=== PATIENT | male | born 1965 | race Caucasian/White ===

== ENCOUNTER 2016-07-28 09:23 | Emergency (ER) | payer SELFPAY ==
[2016-07-28 09:49] VITALS: BP 118/75; O2SAT 91
--- NOTE | 2016-07-28 09:52 | ED.PDOC ---
History of Present Illness - General Chief Complaint: Skin/Abrasion/Tear Stated Complaint: redness to righ arm post iv Time Seen by Provider: 07/28/16 09:50 Source: patient, RN notes reviewed, Vital Signs reviewed Exam Limitations: no limitations - History of Present Illness Initial Comments: Stated was admitted to [facility] last week for elevated wbc-possible leukemia and was given ivf and iron iv then yesterday had redness and swelling getting worse right arm. Timing/Duration: other - 3 days ago Severity: moderate Location: extremities - right antecubital area Improving Factors: nothing Worsening Factors: nothing - some pain on pressure Allergies/Adverse Reactions: Allergies NO KNOWN ALLERGY Allergy (Verified 07/22/16 12:07) Home Medications: Ambulatory Orders Arthritis Med 1 each PO DAILY 07/22/16 Cephalexin 1,000 mg PO BID #30 cap 07/28/16 Review of Systems - Review of Systems Constitutional: States: no symptoms reported EENTM: States: no symptoms reported Respiratory: States: no symptoms reported Cardiology: States: no symptoms reported Gastrointestinal/Abdominal: States: no symptoms reported Genitourinary: States: no symptoms reported Musculoskeletal: States: no symptoms reported Skin: States: see HPI Neurological: States: no symptoms reported Endocrine: States: no symptoms reported Hematologic/Lymphatic: States: other - being work up for elevated wbc Past Medical History (General) - Patient Medical History Hx Stroke: No Hx Congestive Heart Failure: No Hx Diabetes: No Hx Cancer: No Hx Hepatitis C: No Surgical History: no surgical history - Vaccination History Hx Tetanus, Diphtheria Vaccination: No Hx Influenza Vaccination: No Hx Pneumococcal Vaccination: No - Social History Hx Tobacco Use: No Hx Chewing Tobacco Use: No Hx Alcohol Use: Yes - social Hx Substance Use: No Feels Threatened In Home Enviroment: No - Activities of Daily Living Snf/Assisted Living (if applicable):: [facility] Family Medical History - Family History Father Family History: No Known Living Status: Hx Family Cancer: Yes - prostate,colon Physical Exam - Physical Exam General Appearance: Alert, No apparent distress Eyes, Ears, Nose, Throat Exam: PERRL/EOMI, normal ENT inspection, TMs normal Neck: non-tender, full range of motion, normal inspection Cardiovascular/Chest: normal peripheral pulses, regular rate, rhythm, no edema Respiratory: chest non-tender, lungs clear, normal breath sounds, no respiratory distress Gastrointestinal/Abdominal: normal bowel sounds, non tender, soft Back Exam: normal inspection, no CVA tenderness Extremity: non-tender, normal inspection Neurologic: alert, normal mood/affect, oriented x 3 Skin Exam: warm/dry, other - redness/tenderness right antecubital area Skin Character: tenderness, warm Lymphatic: no adenopathy Departure - Departure Clinical Impression: Phlebitis after infusion Qualifiers: Encounter type: initial encounter Qualifier Code: (T80.1XXA) Vascular complications following infusion, transfusion and therapeutic injection, initial encounter Time of Disposition: 10:08 Disposition: Discharge to Home or Self Care Departure Forms: ED Discharge - Pt. Copy, Patient Portal Self Enrollment Instructions: Phlebitis/DVT (Alternative Therapy) Prescriptions: Cephalexin 1,000 mg PO BID #30 cap Home Medications: Ambulatory Orders Arthritis Med 1 each PO DAILY 07/22/16 Cephalexin 1,000 mg PO BID #30 cap 07/28/16 Additional Instructions: Continue with warm moist pack 10 minutes 3x a day during waking hours only until better;RETURN TO EMERGENCY ROOM NEEDED
[2016-07-28] MEDS ORDERED: TETANUS,DIPHTHERIA,PERTUSSIS 1 EA SYG IM ONE (10:12)
[2016-07-28 10:32] VITALS: TEMP 98.4
== END 2016-07-28 10:44 | disposition home or self-care (01) ==
LOC: ER 09:23
DX: T80.1XXA Vascular complications following infusion, transfusion and therapeutic injection, initial encounter (principal); D72.829 Elevated white blood cell count, unspecified; Z79.899 Other long term (current) drug therapy; Z23 Encounter for immunization

== ENCOUNTER 2016-10-14 17:59 | Inpatient (IN) | payer SELFPAY ==
[2016-10-14] MEDS ORDERED: SODIUM CHLORIDE 0.9% (FLUSH) 10 ML SYG IV PRN ×2 (18:13→22:55)
--- NOTE | 2016-10-14 18:22 | ED.PDOC ---
History of Present Illness - General Chief Complaint: Respiratory Problem Stated Complaint: sob Time Seen by Provider: 10/14/16 18:13 Source: patient Exam Limitations: no limitations Additional Information: STARTED 4 H AGO. SOB. NO CP. NEVER HAD SIMILAR. PMH -CML, IS ON SPRYCEL (MONOCLONAL ANTIBODY) SINCE AUG. DENIES CARDIAC OR LUNG HX. NONSMOKER. ALEV BY SITTING UPRIGHT. ARRGAV BY WALKING. - History of Present Illness Severity: severe Activities at Onset: activity Possible Cause: no prior episodes Improving Factors: immobilization Worsening Factors: movement Allergies/Adverse Reactions: Allergies Iron Adverse Reaction (Verified 10/14/16 18:29) Home Medications: Ambulatory Orders Allopurinol [Zyloprim] 300 mg PO DAILY 10/14/16 Dasatinib [Sprycel] 20 mg DAILY 10/14/16 Review of Systems - Review of Systems Constitutional: Denies: diaphoresis, weakness EENTM: States: no symptoms reported Respiratory: States: short of breath. Denies: cough, stridor, wheezing Cardiology: Denies: chest pain, palpitations Gastrointestinal/Abdominal: States: no symptoms reported Genitourinary: States: no symptoms reported Musculoskeletal: States: no symptoms reported Skin: States: no symptoms reported Neurological: States: no symptoms reported. Denies: headache, numbness, paresthesia, seizure, weakness Endocrine: States: no symptoms reported Hematologic/Lymphatic: States: no symptoms reported All other Systems: Reviewed and Negative Past Medical History (General) - Patient Medical History Hx Stroke: No Hx Congestive Heart Failure: No Hx Diabetes: No Hx Cancer: No Hx Hepatitis C: No - Vaccination History Hx Tetanus, Diphtheria Vaccination: No Hx Influenza Vaccination: No Hx Pneumococcal Vaccination: No - Social History Hx Tobacco Use: No Hx Chewing Tobacco Use: No Hx Alcohol Use: Yes - social Hx Substance Use: No Family Medical History - Family History Father Family History: No Known Living Status: Hx Family Cancer: Yes - prostate,colon Physical Exam - Physical Exam General Appearance: Alert, Obvious distress, Obese Eyes, Ears, Nose, Throat Exam: PERRL/EOMI, normal ENT inspection, TMs normal, pharynx normal Neck: non-tender, full range of motion, supple - NO JVD, NO BRUIT. Respiratory: chest non-tender, no respiratory distress, no accessory muscle use - VERY FAINT BL EXP WHEEZE. 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 I SPOKE WITH ONCOLOGY, DR. SHEIKH COVERING FOR DR. ROWLAND (PT'S ONCOLOGIST) . SHE SAID SINCE ABSOLUTE NEUTROPHIL COUNT IS ABOVE 1,500 HE IS SAFE FOR ADMISSION AT [facility] ON STANDARD PNE ANTIBIOTIC THERAPY. I SPOKE WITH DR. LOW, WHO ACCEPTED ADMISSION. AZITHROMYCIN AND LEVAQUIN ARE CONTRAINDICATED WITH SPRYCEL (HIS CML MEDICATION) SO I STARTED ZOSYN. BLOOD CX OBTAINED PRIOR TO ABX. THANK YOU, DR. LOW AND [facility] FOR ACCEPTING ADMISSION AND FURTHER CARE OF THIS PATIENT. Departure - Departure Clinical Impression: Sepsis, Pneumonia of both lower lobes, Hypoxia, Fever, Cough, Dyspnea, Leukopenia, CML (chronic myeloid leukemia), Anemia, Hyposmolality and/or hyponatremia, Hematuria, microscopic Disposition: Admit Patient Condition: Serious Home Medications: Ambulatory Orders Allopurinol [Zyloprim] 300 mg PO DAILY 10/14/16 Dasatinib [Sprycel] 20 mg DAILY 10/14/16 Decision To Admit - Decistion To Admit Decision to Admit Reason: Admit from ER Decision to Admit Date: 10/14/16 Decision to Admit Time: 21:40
--- NOTE | 2016-10-14 18:59 | RAD ---
EXAM: Chest,1 View CLINICAL INDICATION: 51-year-old male with shortness of breath. TECHNIQUE: Single view, AP portable chest was obtained. COMPARISON: 07/22/2016. FINDINGS: Stable prominent cardiac and mediastinal silhouette. Heart size is top normal. Interstitial and airspace opacification raising the concern for pulmonary vascular congestion and edema versus infectious process. No gross pneumothoraces or large pleural effusions. Elevation of the RIGHT hemidiaphragm. The visualized bones are within normal limits. IMPRESSION: Interstitial and airspace opacification raising the concern for pulmonary vascular congestion and edema versus infectious process. Electronically signed by: Lucinda Marie MD 10/14/2016 6:58 PM CDT
[2016-10-14] MEDS ORDERED: PIPERACILLIN/TAZOBACTAM 3.375 GM in SODIUM CHLORIDE 0.9% 100ML 100 ML IVPB ONE (21:29)
[2016-10-14] MEDS ORDERED: PIPERACILLIN/TAZOBACTAM 3.375 GM VIAL IVPB ONE ×2 (21:32→23:18)
[2016-10-14] MEDS ORDERED: SODIUM CHLORIDE 0.9% 100ML 100 ML IVPB ONE ×3 (21:33→23:19)
--- NOTE | 2016-10-14 21:53 | HP ---
HISTORY OF PRESENT ILLNESS: This 51-year-old, white male is admitted to the hospital from the Emergency Room because of significant shortness of breath with associated fever. Earlier this morning, he noted increasing dyspnea with rapid breathing and coughing and tightness in his chest upon breathing. No sputum was being produced. The patient has a history of becoming quite short of breath back in June of this past year or about three months ago and came to the Emergency Room where he was found to have acute myelogenous leukemia with over 170,000 white count noted on his CBC. He has subsequently been seen and initiated on treatment with Dr. Mendoza, taking a special medication in order to treat this condition. This is the first time he has had a significant fever in recent months. He is admitted to the hospital for parenteral therapy after discussion with Dr. Espinoza who is rehabilitation manager for Dr. Mendoza in the oncology department. Of concern is the pancytopenic fever that he is presenting with with abnormal radiographic findings of bilateral pneumonia. PAST MEDICAL HISTORY: 1. Myelogenous leukemia, currently under treatment by Dr. Mendoza in [place]. PAST SURGICAL HISTORY: None. CURRENT MEDICATIONS: Please refer to nursing notes for a complete list of the patient's verified home medications which include Zyloprim 300 mg daily to help prevent gout which is a complication of his treatment as well as Sprycel 20 mg a day for his myelogenous leukemia. ALLERGIES: IRON PREPARATIONS WITH A LOCAL REACTION IN HIS ARM TO IV IRON DURING HIS STAY AT [place]. HE ALSO HAS RECTAL ITCHING WHEN HE TAKES IRON BY MOUTH. FAMILY HISTORY: Positive for diabetes mellitus, colonic polyp, prostate cancer with the patient being adopted, but knowing some of the history of his biological parents. 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 He does not smoke, but his does smoke cigarettes and encouraged to avoid smoke exposure. REVIEW OF SYSTEMS: GENERAL: His weight is 2010 was 308 and it decreased subsequently down to 290 by avoiding soda pop and is now down to 275 pounds. Low grade fever without chills noted today. HEENT: No significant hearing or visual disturbances. NECK: Supple. LUNGS: Significant shortness of breath noted today associated with the fever bringing him to the hospital for care. No hemoptysis, no sputum production today yet. CARDIOVASCULAR: No palpitations or significant chest pains. GASTROINTESTINAL: No nausea or vomiting. No diarrhea. GENITOURINARY: No dysuria. EXTREMITIES: No significant edema. NEUROLOGIC: Generally somewhat weak, but otherwise no focal neurological deficits. PHYSICAL EXAMINATION: VITAL SIGNS: Temperature 101.2. Pulse 92. Blood pressure 145/83. Respirations 20. Pulse oximetry 89% on room air and will place on nasal cannula to maintain 91% to 93%. Weight 125.1 kg. GENERAL: The patient is awake, alert and oriented. Frequent coughing was noted initially during the taking of the history, though his coughing seemed to edel and slow down. He is awake, alert and a good historian. HEENT: Unremarkable. He did clip some skin on his right cheek by scratch with some bleeding which is cleansed and a band-aid applied. LUNGS: Some diminished breath sounds, otherwise fairly clear with a few rhonchi especially in the lateral and the bases bilaterally. CARDIOVASCULAR: Heart tones are fairly regular without any significant gallops. ABDOMEN: Soft with no organomegaly, masses or tenderness evident. Mild fullness in the epigastrium is evident, probably from his frequent coughing. EXTREMITIES: Well-formed with good muscle tone. No significant pedal edema. NEUROLOGIC: No focal neurological deficits are noted. The patient is awake, alert, oriented and communicative. LABORATORY: White count 3,800 with 50% neutrophils, suggesting an approximate 1900 absolute neutrophil count. Hemoglobin 10.4 with mild hyperchromic/ normocytic presentation and platelets are low at 78,000, no doubt as a result of his chemotherapy currently being taken on a daily basis. Blood cultures are pending. Influenza A/B negative. Chest x-ray does reveal bilateral interstitial infiltrates, suggesting an infectious process versus pulmonary vascular congestion. ASSESSMENT: 1. Acute bilateral pneumonia, symptomatic. 2. Acute neutropenic fever. Temperature 101.2. 3. Recent diagnosis three months ago of chronic myelogenous leukemia, currently on chemotherapy with Sprycel 20 mg being taken daily. 4. Pancytopenia with anemia, leukopenia and thrombocytopenia. 5. Hypoxia, secondary to the pneumonia process with followup suggested. PLAN: The patient is admitted to the hospital because of the significance of the underlying pathology. Condition discussed with Dr. Espinoza who agrees the patient will require parenteral therapy currently with Zosyn. Please refer to orders. Continue with pulmonary hygiene and bronchodilators as well as procure a sputum specimen. We will try to see if a clinic appointment is available with Dr. Mendoza at his [facility] visit tomorrow afternoon so the patient would be able to be seen by his primary care oncologist while treatment is initiated. Close followup in adapting of the treatment depending on the patient's response currently to the monotherapy. #[id number] [facility]
[2016-10-14] MEDS ORDERED: IPRATROPIUM/ALBUTEROL 3 ML VIAL NEB ONE (22:17)
[2016-10-14] MEDS ORDERED: LEVALBUTEROL NEBS 1.25 MG/3 ML VIAL INH PRN (22:58)
[2016-10-14] MEDS ORDERED: ACETAMINOPHEN 325 MG TAB PO PRN (22:58)
[2016-10-14] MEDS ORDERED: MAGNESIUM HYDROXIDE 30 ML UD PO PRN (22:58)
[2016-10-14] MEDS ORDERED: HYDROcodone 5MG/APAP 325MG 1 EA TAB PO PRN (22:58)
[2016-10-14] MEDS ORDERED: ONDANSETRON INJ 4 MG/2 ML VIAL IV PRN (22:58)
[2016-10-14] MEDS: IV SET AND CAP CHANGE INJ INJ SCH (23:22)
[2016-10-14] MEDS: BIFIDOBACTERIUM INFANTIS 4 MG CAP PO SCH (23:22)
[2016-10-14] MEDS: KCL 20 MEQ/NS 1,000 ML IVS PRN (23:22)
[2016-10-15] MEDS: PIPERACILLIN/TAZOBACTAM 3.375 GM in SODIUM CHLORIDE 0.9% 100ML 100 ML IVPB SCH ×4 (02:34→20:33)
[2016-10-15] MEDS: OMEPRAZOLE CAP 20 MG CAP PO SCH (06:11)
[2016-10-15] MEDS ORDERED: SODIUM CHLORIDE 0.9% 100ML 100 ML IVPB ONE ×4 (07:03→19:40)
[2016-10-15] MEDS ORDERED: PIPERACILLIN/TAZOBACTAM 3.375 GM VIAL IVPB ONE ×4 (07:03→19:40)
[2016-10-15] MEDS ORDERED: SODIUM CHLORIDE 0.9% 10 ML VIAL ONE (07:17)
--- NOTE | 2016-10-15 07:22 | RAD ---
EXAM DESCRIPTION: Chest,2 Views CLINICAL HISTORY: Pneumonia COMPARISON: 10/14/2016 TECHNIQUE: Two-views of the chest. FINDINGS: Heart size top limits normal. Bilateral interstitial infiltrates with minimal alveolar component, slightly increased from previous study. There is no dense alveolar consolidation or pleural effusion IMPRESSION: Increasing bilateral diffuse primarily interstitial infiltrates Electronically signed by: Landry Dee MD 10/15/2016 7:21 AM CDT
[2016-10-15] MEDS: IPRATROPIUM/ALBUTEROL 3 ML VIAL INH SCH ×4 (08:01→19:55)
[2016-10-15] MEDS ORDERED: SODIUM CHLORIDE 0.9% 10 ML VIAL IV PRN (08:34)
[2016-10-15] MEDS: ALLOPURINOL 300 MG TAB PO SCH (08:40)
[2016-10-15] MEDS: BIFIDOBACTERIUM INFANTIS 4 MG CAP PO SCH ×2 (08:40→20:33)
[2016-10-15] MEDS ORDERED: DASATINIB 20 MG PO SCH (09:00)
[2016-10-15] MEDS: levoFLOXacin 500 MG TAB PO SCH (11:34)
[2016-10-15] MEDS: KCL 20 MEQ/NS 1,000 ML IVS PRN (17:07)
--- NOTE | 2016-10-15 20:08 | PN ---
DATE: 10/15/16 SUPERVISING PHYSICIAN: Landry Taylor M.D. SUBJECTIVE: The patient this morning is sitting in the bedside chair. He seems to be feeling well, although he continues to run a fever. He still has some dyspnea with exertion. He notes that his chest tightness and breathing effort is better. He continues with no sputum production. I did talk with Dr. Espinoza today who recommended that we could, if needed, start him on steroids as well as hold his chemotherapy agent until he is seen in followup with Dr. Mendoza. OBJECTIVE: VITAL SIGNS: T max 101.2, pulse 90, blood pressure 136/75, respirations 18, O2 sat showing 92% to 94% on room air. I's and O's show a near balance of 25 with 1500 in, 1475 out. GENERAL: The patient appears to be in no acute distress. She is anxious to go home. CHEST: Lungs are diminished towards the bases with no rhonchi or rales heard today. HEART: Regular rate and rhythm. ABDOMEN: Obese but soft, non-tender. Positive bowel sounds. EXTREMITIES: No clubbing, cyanosis or edema. NEUROLOGIC: He is alert and oriented times three. LABORATORY: White count today is down to 3.4 with absolute neutrophil count of 2.0 with 60% neutrophils, hemoglobin dropped slightly to 9.7, hematocrit 29.5, platelet count is improved to 83,000. Chemistries today show normal electrolytes with potassium 3.7, BUN 12, creatinine 1.0, glucose 178. AST is elevated but showed improvement from admission, it is now at 46. MICROBIOLOGY: Blood cultures remain negative after 24 hours. Sputum culture is pending. RADIOLOGY: Chest x-ray per radiology interpretation 2 view shows increasing bilateral diffuse primarily interstitial infiltrates. ASSESSMENT: 1. Acute bilateral pneumonia, symptomatic showing some worsening radiographically, although the patient appears to be somewhat clinically better and is currently on mono antibiotic therapy Zosyn. 2. Acute neutropenic fever with T max of 101.2. 3. Recent diagnosis within the last few months for chronic myelogenous leukemia currently on chemotherapy with Sprycel 200 mg daily being held per oncology's request. 4. Pancytopenia with anemia, leukopenia and thrombocytopenia. 5. Hypoxia secondary to pneumonia process showing some slight improvement showing O2 saturations on room air to be around 92%. PLAN: Given that the patient's radiographic studies showed increasing infiltrates, will change the patient from monotherapy in regard to antibiotics to dual therapy to include Levaquin and Zosyn, and monitor closely. Will continue with aggressive pulmonary hygiene and bronchodilators, and await sputum cultures and target antibiotic therapy according to those final results. I did talk with Dr. Espinoza today as she is engineering and operations director for Dr. Mendoza who is out of the office, and she suggested that we hold the Sprycel until he can be seen in the office in the outpatient setting. She offered that we could, if we needed to, start him on corticosteroids without any significant complications anticipated. Will plan to discharge the patient once the patient is afebrile for at least 24 hours after adequate antibiotic therapy. Once the patient is able to be discharged to followup clinically, the patient will need continued antibiotics to include at least Levaquin in the outpatient setting. Until then , will continue to monitor the patient closely and treat appropriately. #[id number] [facility]
[2016-10-16] MEDS: PIPERACILLIN/TAZOBACTAM 3.375 GM in SODIUM CHLORIDE 0.9% 100ML 100 ML IVPB SCH ×4 (03:14→20:35)
[2016-10-16] MEDS: OMEPRAZOLE CAP 20 MG CAP PO SCH (06:20)
[2016-10-16] MEDS: KCL 20 MEQ/NS 1,000 ML IVS PRN (07:12)
[2016-10-16] MEDS ORDERED: PIPERACILLIN/TAZOBACTAM 3.375 GM VIAL IVPB ONE ×4 (08:36→19:48)
[2016-10-16] MEDS ORDERED: SODIUM CHLORIDE 0.9% 100ML 100 ML IVPB ONE ×4 (08:37→19:49)
[2016-10-16] MEDS: IPRATROPIUM/ALBUTEROL 3 ML VIAL INH SCH ×4 (09:00→20:21)
[2016-10-16] MEDS: ALLOPURINOL 300 MG TAB PO SCH (09:54)
[2016-10-16] MEDS: BIFIDOBACTERIUM INFANTIS 4 MG CAP PO SCH ×2 (09:54→20:35)
--- NOTE | 2016-10-16 11:13 | RAD ---
EXAM DESCRIPTION: Chest,2 Views CLINICAL HISTORY: 51 years Male, pneumonia COMPARISON: 10/15/2016 IMPRESSION: The heart remains enlarged with central pulmonary vascular congestion. Diffusely increased interstitial and airspace opacities are again demonstrated throughout both lungs. The findings may be secondary to CHF with interstitial and pulmonary edema versus multifocal pneumonia. No large pleural effusion or pneumothorax. No acute osseous abnormality. Electronically signed by: Tao Beauileu MD 10/16/2016 11:13 AM CDT
[2016-10-16] MEDS: levoFLOXacin 500 MG TAB PO SCH (12:10)
--- NOTE | 2016-10-16 18:01 | PN ---
DATE: 10/16/16 SUPERVISING PHYSICIAN: Landry Taylor M.D. SUBJECTIVE: The patient is sitting in the bedside chair doing well. He says his shortness of breath is much less than previous days. He still continues to run a low-grade fever but has had no nausea, vomiting or diarrhea. OBJECTIVE: T max 100.2, pulse 90, blood pressure 145/77, respirations 18, O2 sat 95% nasal cannula at 2 liters. I's and O's show a positive balance of 2394 with 3340 in, 950 out. Weight is 125.1 kg. GENERAL: The patient appears to be in no distress. CHEST: Lungs are better aerated today with breath sounds heard towards the bases more prominent compared to previous. There are no rhonchi or rales noted. HEART: Regular rate and rhythm. ABDOMEN: Soft, non-tender but obese. Positive bowel sounds. EXTREMITIES: No clubbing, cyanosis or edema. NEUROLOGIC: He is alert and oriented times three. LABORATORY: White count continues to drop to 2.8 today with hemoglobin and hematocrit being stable at 10.2 and 30.9 which is a slight improvement from previous days. Platelet count has come up to 92,000. Differential shows to be without a left shift. Absolute neutrophil count has dropped to 1400 compared to 2,000. Chemistries show normal electrolytes with potassium 4.0, BUN 10, creatinine 1.0. MICROBIOLOGY: Sputum culture final 48 hours shows no growth. Blood cultures remain negative at 24 hours. RADIOLOGY: Chest x-ray per radiology interpretation shows diffusely increased interstitial and airspace opacities demonstrated throughout both lungs. ASSESSMENT: 1. Acute bilateral pneumonia, symptomatic on admission showing some stabilization in regards to radiographic studies with the patient continuing to show some clinical improvement and the patient currently being on dual therapy antibiotics to include Zosyn and Levaquin. 2. Acute neutropenic fever with T max temperature now of 100.2 which is improved from admission with the patient having a history of chronic myelogenous leukemia and on previous chemotherapy. 3. Recent diagnosis within the last few months for chronic myelogenous leukemia having been previous on chemotherapy within the last 72 hours and included Sprycel 200 mg daily which is being held per oncology's request until he is seen in followup after discharge. 4. Pancytopenia to include anemia which is improving slightly as well as neutropenia and thrombocytopenia which is also showing some slight improvement with absolute neutrophil count that continues to show some decreasing numbers. 5. Hypoxia secondary to pneumonia process continues to show improvement with O2 saturations on room air to be around 92% to 94% with bronchodilators and aggressive pulmonary hygiene. PLAN: Will continue to follow the patient closely. Anticipate possible discharge tomorrow after reevaluation clinically and repeat of laboratory studies. At oncology's recommendations, the patient can be discharged once he is afebrile for at least 24 hours to continue antibiotic therapy once he is discharged. Will repeat laboratory studies in the morning and continue with current antibiotic therapy to include Zosyn and Levaquin. Once clinically stable, the patient will be discharged to continue with Levaquin in the outpatient setting and have close clinical followup with his oncologist, Dr. Mendoza as well as continue to hold his Sprycel dosing until seen in followup. Until then, will continue to follow the patient and treat appropriately. #[id number] [facility]
[2016-10-17] MEDS: KCL 20 MEQ/NS 1,000 ML IVS PRN ×2 (01:13→16:16)
[2016-10-17] MEDS: PIPERACILLIN/TAZOBACTAM 3.375 GM in SODIUM CHLORIDE 0.9% 100ML 100 ML IVPB SCH (03:17)
[2016-10-17] MEDS: ALPRAZolam 0.5 MG TAB PO PRN ×2 (05:38→21:11)
[2016-10-17] MEDS: OMEPRAZOLE CAP 20 MG CAP PO SCH (06:01)
--- NOTE | 2016-10-17 07:24 | RAD ---
Two view chest Indication: Abnormal white blood cell count COMPARISON: October 16 IMPRESSION: Slight worsening of interstitial infiltrates/edema. Normal heart size. Mild airspace disease/alveolar infiltrate or edema in the right base as well. No large effusion or pneumothorax. Given the cardiac size possible noncardiogenic edema or infectious inflammatory process. Electronically signed by: Estevan Franks MD 10/17/2016 7:23 AM CDT
[2016-10-17] MEDS ORDERED: SODIUM CHLORIDE 0.9% 100ML 100 ML IVPB ONE (08:01)
[2016-10-17] MEDS ORDERED: PIPERACILLIN/TAZOBACTAM 3.375 GM VIAL IVPB ONE (08:01)
[2016-10-17] MEDS: IPRATROPIUM/ALBUTEROL 3 ML VIAL INH SCH ×4 (08:17→20:14)
[2016-10-17] MEDS: ALLOPURINOL 300 MG TAB PO SCH (08:59)
[2016-10-17] MEDS: BIFIDOBACTERIUM INFANTIS 4 MG CAP PO SCH ×2 (08:59→21:10)
[2016-10-17] MEDS ORDERED: FILGRASTIM 300 MCG/0.5 ML SYRINGE SUBCU SCH ×2 (09:00→09:30)
[2016-10-17] MEDS ORDERED: methylPREDNISolone SODIUM SUC 125 MG/2 ML VIAL IV ONE (12:00)
[2016-10-17] MEDS ORDERED: FUROSEMIDE INJ 40 MG/4 ML VIAL IV ONE (12:00)
--- NOTE | 2016-10-17 12:02 | PCM.CORE ---
Physician DVT/VTE - Contraindications Medication Contraindication: Medical Contraindication - plt ct less than 100k on admit - Nurse DVT Assessment & Total Each Risk Factor Represents 1 Point: Age 41-60 Each Risk Factor is 1 Point: Varicose Veins/Edema Legs, Obesity (BMI >25), Serious Lung disease (pnemonia <1month, COPD, emphysema,etc) DVT Assessment Score: 4 - 3-4 High Risk Treatments: Early Ambulation *, Sequential Compression Device Pharmacological: Enoxaparin 40 mg SQ Daily
[2016-10-17] MEDS: levoFLOXacin 500 MG TAB PO SCH (12:03)
[2016-10-17] MEDS ORDERED: methylPREDNISolone SODIUM SUC 40 MG/ML VIAL ONE (12:08)
[2016-10-17] MEDS ORDERED: ENOXAPARIN SODIUM 40 MG/0.4 ML SYG SUBCU SCH (12:30)
--- NOTE | 2016-10-17 18:09 | PN ---
DATE: 10/17/16 SUPERVISING PHYSICIAN: Waldemar Granado M.D. SUBJECTIVE: The patient had a little anxiety attack this morning and was given a little Xanax which did result in resolution of his symptoms. He was anxious that he needed to go home because he needed to pay bills and could not stay any longer than he already had, but after Xanax he did settle down. OBJECTIVE: VITAL SIGNS: He has been afebrile now for 48 hours with T max temperature 98.7, pulse 94, blood pressure 114/67, respirations 20, O2 sat showing 94% on room air. I's and O's are not measured as he is voiding but they are not collecting his urine. Weight 135.7 kg. He had 1 bowel movement. CHEST : There is some notable wheezing to the upper left lobe with some very faint rhonchi heard on the bilateral bases and diminished posteriorly. HEART: regular rate and rhythm. ABDOMEN: Soft, non-tender. Positive bowel sounds. EXTREMITIES: No clubbing, cyanosis or edema. NEUROLOGIC: He is alert and oriented times three. LABORATORY: White count continues to decrease, today it is 1.9, absolute count is down to 600. Hemoglobin and hematocrit are stable at 10.1 and 30.7, platelet count has improved to 107,000. Differential shows to be without a left shift. Chemistries show normal electrolytes with potassium 4.1, BUN 10, creatinine 0.93. RADIOLOGY: Chest x-ray two view today per radiology interpretation showed slight worsening of interstitial infiltrates/edema, normal heart size with moderate airspace disease/alveolar infiltrates or edema in the right base as well. No large effusions or pneumothoraxes were noted. ASSESSMENT: 1. Acute bilateral pneumonia, symptomatic on admission showing some stabilization although radiographic studies today shows slight worsening, although the patient clinically shows to be improving. He has been on dual therapy antibiotics to include Zosyn and Levaquin, however Zosyn will be stopped today as his white count continues to drop. 2. Acute neutropenic fever resolved now, fever free for 48 hours with the patient having a history of chronic myelogenous leukemia and previously being on chemotherapy within the last week. 3. Recent diagnosis within the last few months for chronic myelogenous leukemia having been previous on chemotherapy within the last 72 hours that included Sprycel 200 mg daily which is being held by oncology's request since admission until he can be seen in followup after discharge. 4. Pancytopenia to include anemia which shows to be stable with a stable H&H and improving thrombocytopenia although worsening neutropenia and decrease in absolute neutrophil count. 5. Hypoxia secondary to pneumonia process continues to show improvement with O2 saturations on room air that are 94% with bronchodilators and aggressive pulmonary hygiene. PLAN: I did discuss the patient's case once again with Dr. Espinoza in regards to the drop in absolute neutrophil count. Dr. Espinoza recommended that we stop the Zosyn as this could be contributing to some of his dropping white count and continue with Levaquin, and start him on Neupogen 480 mg subcue daily, however we only have 300 mg syringes available at [facility] currently. She recommends continuing Neupogen until his absolute neutrophil count is above 5, 000 at which time it can be discontinued. She agrees that once Neupogen has been started and repeat CBC in the morning shows some improvement and he again remains without a fever, he can certainly be discharged to continue with monitoring in the outpatient setting. Once he is discharged, he will need a repeat CBC daily along with his Neupogen injections which can be followed closely during the weekend as an outpatient. Given the patient's absolute neutrophil count, the patient is now placed on neutropenic precautions. Until then, will continue to monitor the patient closely and treat appropriately. #[id number] [facility]
[2016-10-18 03:33] VITALS: TEMP 98.4
[2016-10-18] MEDS: KCL 20 MEQ/NS 1,000 ML IVS PRN (05:34)
[2016-10-18] MEDS: IV SET AND CAP CHANGE INJ INJ SCH (05:34)
[2016-10-18] MEDS: OMEPRAZOLE CAP 20 MG CAP PO SCH (06:07)
[2016-10-18] MEDS ORDERED: ENOXAPARIN SODIUM 40 MG/0.4 ML SYG SUBCU ONE (07:34)
[2016-10-18] MEDS: IPRATROPIUM/ALBUTEROL 3 ML VIAL INH SCH (08:10)
[2016-10-18] MEDS ORDERED: ENOXAPARIN SODIUM 40 MG/0.4 ML SYG SUBCU SCH (09:00)
[2016-10-18] MEDS: BIFIDOBACTERIUM INFANTIS 4 MG CAP PO SCH (09:04)
[2016-10-18] MEDS: ALLOPURINOL 300 MG TAB PO SCH (09:04)
[2016-10-18] MEDS: levoFLOXacin 500 MG TAB PO SCH (09:06)
[2016-10-18 10:45] VITALS: BP 150/78; O2SAT 97
--- NOTE | 2016-10-20 09:15 | DS ---
SUPERVISING PHYSICIAN: Waldemar Granado MD DISCHARGE DIAGNOSIS: 1. Acute bilateral pneumonia, symptomatic on admission showing some stabilization with patient clinically showing good improvement, having been on dual therapy antibiotics to include Zosyn and Levaquin with Zosyn having been stopped 24 hours prior to discharge as it was felt that this was resulting in some neutropenia with the patient's medical history being complicated by neutropenia. 2. Acute neutropenic secondary to #1 with patient remaining afebrile for 72 hours prior to discharge complicated by his history of chronic myelogenous leukemia having previously been on chemotherapy within the last 7 days prior to admission. 3. Recent diagnosis within the last few months for chronic myelogenous leukemia and on chemotherapy prior to admission approximately 72 hours that included Sprycel which ultimately was held per oncology's request and will be held until patient is seen in followup.. 4. Pancytopenia to include anemia which had shown to be stable with H&H with thrombocytopenia which had also improved as well as neutropenia that had resolved after patient was started on Neupogen with absolute neutrophil count showing to be within normal limits.. 5. Hypoxia secondary to pneumonia sowing improvement with O2 saturations on room air at 94% bronchodilators and aggressive pulmonary therapy prior to discharge. HISTORY OF PRESENT ILLNESS: Mr. Wall is a 51-year-old male patient admitted to the hospital from the Emergency Room because of significant shortness of breath with associated fever. Early on the morning of admission, he was noted to have increasing dyspnea with rapid breathing and coughing and tightness in his chest , No sputum was produced. The patient has a history of becoming quite short of breath in June of this past year or about three months and came to the Emergency Room where he was found to have acute myelogenous leukemia with over 170,000 white count noted on his CBC. He was subsequently seen and initiated on treatment with Dr. Mendoza, taking a special medications in order to treat his condition. This is his first admission with significant fever since starting his chemotherapy. He was admitted to the hospital for parenteral therapy, antibiotics as well as consultation and discussion with Dr. Espinoza who was pipeline superintendent division for Dr. Mendoza in the oncology department on date of admission. Initial concern was his pancytopenic fever as he is presenting with with abnormal radiographic findings consistent with bilateral pneumonia. LABORATORY: Initial white count was 3.8, it did drop to a low of 1.9 which was on 10/17/16 after initiation of Neupogen and date of discharge had increased to 9.4. Absolute neutrophil count started out at 2,000, dropped to a low of 600 and after Neupogen had returned to 7900. He did show a left shift after his neutrophil count had increased with a normal white count. Hemoglobin and hematocrit were stable after admission and at discharge was 11 and 31.0. Platelet count initially was low at 78,000 and daily improved and at time of discharge was 135,000. Coagulation studies showed D-dimer less than 230. Chemistries initially on admission showed just a low sodium of 138, otherwise within normal limits. Through his admission and treatment, his electrolytes remained within normal limits as well as his BUN and creatinine. At time of discharge, BUN was 12, creatinine 0.95, calcium 8.9 on admission and discharge 9.3. He had AST that was slightly elevated at 47 and normalized at time of discharge and was 46. Otherwise, liver functions all showed to be within normal limits. He did have one troponin that was 0.03, BNP 36. Urinalysis on admission showed a trace of blood, otherwise was within normal limits. MICROBIOLOGY: He had 2 sets of blood cultures that remained negative after 4 days. He had influenza A swab for both A and B by PCR that was negative. He had MRSA surveillance cultures that showed no growth at 72 hours. He had a sputum culture that showed normal mira at 48 hours. RADIOLOGY: Initial chest x-ray in the Emergency Department per radiology interpretation showed interstitial and air space opacity raising the question of pulmonary vascular congestion and edema versus infectious process. He had multiple chest x-rays through his admission. The first chest x-ray on followup per radiology interpretation showed increase in bilateral diffuse interstitial infiltrates. At date of discharge, his last x-ray to the chest per radiology interpretation showed a slight worsening interstitial infiltrates/edema, normal heart size, there was mild airway space disease infiltrate or edema in the right base. There was no large effusion or pneumothorax. Although, the patient showed some worsening of his studies but did improve clinically. HOSPITAL COURSE: Mr. Wall is a 51 year-old male patient as noted in the history of present illness admitted from the Emergency Department for bilateral pneumonia with complications from chronic myelogenous leukemia, having previously been on steroids being pancytopenic with a fever. He was initiated on Zosyn initially for antibiotic therapy, however, he continued to show a decrease in his white count as well as absolute neutrophil count. Therefore, he was started on dual antibiotic therapy that included Levaquin in addition to the Zosyn. Consultations were secured multiple times with Dr. Espinoza who initially recommended that the patient remain in the hospital until he was fever-free for 24 hours and his absolute neutrophil count showed stabilization. Once his white count had decreased to 1.9 as well as absolute neutrophil count dropped below 600, after talking with Dr. Espinoza the patient was initiated on Neupogen and received one single dose. The morning after the initiation of single dose of Neupogen his white count had normalized as well as his absolute neutrophil count had improved and his hemoglobin and hematocrit remained stable as well as his platelet count had improved. The patient 24 hours prior to discharge was given a dose of Lasix 40 m g IV and did show some good results, resulting in improvement in his breathing. The patient clinically had shown improvement, was able to ambulate without oxygen without any difficulty, was showing no adverse effects from the Neupogen nor any other clinical signs of overwhelming infection and had clinically improved, felt to the point where he was well enough to be discharged to followup in the clinic with Dr. Espinoza and Dr. Mendoza in the following week. PLAN: The patient was discharged on 10/18 to have close clinical followup with Dr. Mendoza on 10/24/17 at 9 o'clock in the morning. He was to resume his usual diet and increase activity as tolerated. He was to take his new prescriptions as directed and resume all other home medications as instructed but to hole Sprycel until he could be seen in followup. He was to use a face mask in followup for an infection precaution as well as limit salt in his diet and increase activity as tolerated. He is to return to the hospital should he have any recurrence of his fever or symptoms worsen. He was discharged with new prescriptions to include albuterol inhaler 1 puff every 4 hours as needed for bronchospasms, Levaquin 500 mg every 24 hours, #6. All other medications to resume as previous to admission to the hospital except for holding the Sprycel. #[id number] [facility]
== END 2016-10-18 10:44 | disposition home or self-care (01) | DRG 871 ==
LOC: ER 17:59 → MS 21:52
PROVIDERS: ADMIT Emergency Medicine; ATTEND Nurse Practitioner Family
DX: A41.9 Sepsis, unspecified organism (principal); J18.9 Pneumonia, unspecified organism; E87.1 Hypo-osmolality and hyponatremia; C92.10 Chronic myeloid leukemia, BCR/ABL-positive, not having achieved remission; D61.818 Other pancytopenia; Z68.41 Body mass index [BMI] 40.0-44.9, adult; D70.2 Other drug-induced agranulocytosis; T36.0X5A Adverse effect of penicillins, initial encounter; Y92.230 Patient room in hospital as the place of occurrence of the external cause; F41.9 Anxiety disorder, unspecified; R09.02 Hypoxemia; E66.9 Obesity, unspecified; Z92.21 Personal history of antineoplastic chemotherapy; Z91.048 Other nonmedicinal substance allergy status; Z79.899 Other long term (current) drug therapy

== ENCOUNTER → 2016-10-27 | Outpatient (CLI) | payer SELFPAY | END | disposition home or self-care (01) | LOC: LAB.O 12:32 | PROVIDERS: ATTEND Internal Medicine Medical Oncology | DX: C92.10 Chronic myeloid leukemia, BCR/ABL-positive, not having achieved remission (principal) ==

== ENCOUNTER → 2016-11-17 | Outpatient (CLI) | payer SELFPAY | END | disposition home or self-care (01) | LOC: LAB.O 14:26 | PROVIDERS: ATTEND Internal Medicine Medical Oncology | DX: C92.10 Chronic myeloid leukemia, BCR/ABL-positive, not having achieved remission (principal) ==

== ENCOUNTER → 2017-02-11 | Outpatient (CLI) | payer SELFPAY | LOC: LAB.O 17:54 | PROVIDERS: ATTEND Internal Medicine Medical Oncology | DX: C92.10 Chronic myeloid leukemia, BCR/ABL-positive, not having achieved remission (principal) ==

== ENCOUNTER 2020-07-21 04:54 | Emergency (ER) | payer SELFPAY ==
[2020-07-21] MEDS ORDERED: ONDANSETRON INJ 4 MG/2 ML VIAL IV ONE (05:22)
[2020-07-21] MEDS ORDERED: MORPHINE SULFATE INJ 10 MG/ML VIAL IV ONE ×2 (05:22→08:34)
--- NOTE | 2020-07-21 05:26 | ED.PDOC ---
History of Present Illness - General Chief Complaint: Abdominal Pain Stated Complaint: abd pain Time Seen by Provider: 07/21/20 05:12 Information Source: patient, RN notes reviewed, Vital Signs reviewed, family Exam Limitations: no limitations - History of Present Illness Initial Comments: 54 yo male with hx of CML comes in with one day of cramping and burning like abdominal pain on bilateral abdomen. Gradual in onset. Also has back pain that has is chronic. no n/v/d/constipation. no back or bloody bm. No chest pain or shortness of breath. Pain seems to be worse after he takes Bosulif. Follows Dr. Hollis Review of Systems - Review of Systems Constitutional: Denies: chills, fever EENTM: Denies: blurred vision, throat pain Respiratory: Denies: cough, short of breath Cardiology: Denies: chest pain, palpitations Gastrointestinal/Abdominal: States: abdominal pain. Denies: constipation, diarrhea, nausea, vomiting Genitourinary: Denies: dysuria, frequency Musculoskeletal: States: back pain. Denies: joint pain, muscle pain Skin: Denies: rash Neurological: Denies: headache, numbness Endocrine: Denies: unexplained weight gain, unexplained weight loss Hematologic/Lymphatic: Denies: blood clots, easy bleeding, easy bruising Past Medical History (General) - Patient Medical History Hx Seizures: No Hx Stroke: No Hx Asthma: No Hx of COPD: No Hx Cardiac Disorders: No Hx Congestive Heart Failure: No Hx Pacemaker: No Hx Hypertension: No Hx Diabetes: No Hx Cancer: Yes - leukemia Hx Hepatitis C: No Hx MRSA: No Surgical History: no surgical history - Vaccination History Hx Tetanus, Diphtheria Vaccination: No Hx Influenza Vaccination: No Hx Pneumococcal Vaccination: No - Social History Hx Tobacco Use: No Hx Chewing Tobacco Use: No Hx Alcohol Use: No Hx Substance Use: No Hx Substance Use Treatment: No Hx Depression: No Hx Physical Abuse: No Hx Emotional Abuse: No Hx Suspected Abuse: No Family Medical History - Family History Father Family History: No Known Living Status: Hx Family Cancer: Yes - prostate,colon Physical Exam - Physical Exam General Appearance: Alert, Comfortable, No apparent distress, Obese, Well Developed, Well Groomed, Well Hydrated, Well Nourished Eyes, Ears, Nose, Throat Exam: normal ENT inspection Neck: non-tender, full range of motion, supple, normal inspection Respiratory: chest non-tender, lungs clear, normal breath sounds, no respiratory distress, no accessory muscle use Cardiovascular/Chest: normal peripheral pulses, regular rate, rhythm, no edema, no gallop, no JVD, no murmur Peripheral Pulses: 2+ Gastrointestinal/Abdominal: normal bowel sounds, non tender, no organomegaly, no pulsatile mass, tenderness - diffuse tenderness, no RLQ tenderness, RUQ tenderness, + murphys. Rectal Exam: deferred Back Exam: normal inspection, no CVA tenderness, no vertebral tenderness Extremity: normal range of motion, non-tender, normal inspection, no pedal edema, no calf tenderness, normal capillary refill Neurologic: lending manager II-XII nml as tested, no motor/sensory deficits, alert, normal mood/affect, oriented x 3 Skin Exam: normal color, warm/dry Progress - Progress Progress: partial ddx: appendicitis, diverticulitis, uti, stone. Given NS bolus, morphine and zofran. Discussed with Dr. Bosch about patients platelets. recommend holding bosiluf until thursday and following up with Dr. Hollis at that time. patient noted to have cholecysitis, will give one dose zosyn now. 07/21/20 05:53 The data reviewed when caring for this patient included: nurse notes, prior records, etc. The history and assessments from nurses notes were reviewed and considered, and the patient's home medication list was also reviewed and considered. My assessment and the results of testing completed here in the ED were discussed with the patient/family. All questions were answered, and they express understanding of my assessment and the plan. Sosa Joya DO #[id number] 07/21/20 06:05 07/21/20 06:07 07/21/20 06:56 - Results/Orders Results/Orders: Ct abd/pelvis: 1. Cholelithiasis with surrounding pericholecystic inflammation and edema without biliary ductal dilatation. Findings do raise concern for acute cholecystitis. Consider ultrasound imaging for further evaluation. 2. Moderate bilateral hydronephrosis without definite obstructing ureteral abnormality. Chronic UPJ obstructions are not excluded. 3. Nonobstructing 7 mm calcification in the lower pole of the left kidney. 4. Hepatosplenomegaly. 5. Fatty replacement of the pancreas. 6. Trace pericardial fluid. 07/21/20 05:08 IV Care:Saline Lock per Protoc QSHIFT 07/21/20 05:15 EKG STAT 07/21/20 05:22 Hold Metformin x 48Hrs [id number] 07/21/20 06:32 Piperacillin/Tazobactam [Zosyn] 4.5 gm Sodium Chloride 0.9% 100Ml [NS (NACL 0.9%) 100ml] 100 ml IVPB ONCE 07/21/20 06:38 BLOOD CULTURE Stat 07/21/20 06:46 RAPID SARS-CoV-2 RNA Stat Laboratory Results WBC 8.3 K/mm3 (4.8-10.8) 07/21/20 05:07 RBC 4.44 M/mm3 (4.70-6.10) L 07/21/20 05:07 Hgb 13.2 gm/dL (14.0-18.0) L 07/21/20 05:07 Hct 39.6 % (42.0-52.0) L 07/21/20 05:07 MCV 89.2 fl (80.0-94.0) 07/21/20 05:07 MCH 29.8 pg (27.0-31.0) 07/21/20 05:07 MCHC 33.4 g/dL (33.0-37.0) 07/21/20 05:07 RDW 20.1 % (11.5-14.5) H 07/21/20 05:07 Plt Count 34 K/mm3 (130-400) L* 07/21/20 05:07 MPV 8.9 fl (7.40-10.4) 07/21/20 05:07 Absolute Neuts (auto) 5.20 K/uL (1.8-6.8) 07/21/20 05:07 Absolute Lymphs (auto) 2.40 K/uL (1.0-3.4) 07/21/20 05:07 Absolute Monos (auto) 0.50 K/uL (0.2-0.8) 07/21/20 05:07 Absolute Eos (auto) 0.10 K/uL (0.0-0.4) 07/21/20 05:07 Absolute Basos (auto) 0.10 K/uL (0.0-0.1) 07/21/20 05:07 Neutrophils % 62.8 % (42.0-78.0) 07/21/20 05:07 Lymphocytes % 29.1 % (20.0-50.0) 07/21/20 05:07 Monocytes % 6.1 % (2.0-9.0) 07/21/20 05:07 Eosinophils % 1.3 % (1.0-5.0) 07/21/20 05:07 Basophils % 0.7 % (0.0-2.0) 07/21/20 05:07 Normal RBC Morphology 2+aniso 1+microcytosis Plts nikki decreased Stain quality accept 07/21/20 05:07 Normal RBC Morphology 2+aniso 1+microcytosis Plts nikki decreased Stain quality accept 07/21/20 05:07 Normal RBC Morphology 2+aniso 1+microcytosis Plts nikki decreased Stain quality accept 07/21/20 05:07 Normal RBC Morphology 2+aniso 1+microcytosis Plts nikki decreased Stain quality accept 07/21/20 05:07 Sodium 134 mmol/L (135-145) L 07/21/20 05:07 Potassium 3.8 mmol/L (3.6-5.0) 07/21/20 05:07 Chloride 102 mmol/L (101-111) 07/21/20 05:07 Carbon Dioxide 23 mmol/L (21-31) 07/21/20 05:07 Anion Gap 12.8 (12-18) 07/21/20 05:07 BUN 13 mg/dL (7-18) 07/21/20 05:07 Creatinine 0.96 mg/dL (0.6-1.3) 07/21/20 05:07 BUN/Creatinine Ratio 13.5 (10-20) 07/21/20 05:07 Random Glucose 130 mg/dL (70-105) H 07/21/20 05:07 Serum Osmolality 270.1 mOsm/L (275-295) L 07/21/20 05:07 Calcium 9.3 mg/dL (8.4-10.2) 07/21/20 05:07 Total Bilirubin 0.7 mg/dL (0.2-1.0) 07/21/20 05:07 Total Bilirubin Cancelled 07/21/20 05:07 Direct Bilirubin 0.1 mg/dL (0-0.2) 07/21/20 05:07 Direct Bilirubin Cancelled 07/21/20 05:07 Indirect Bilirubin Cancelled 07/21/20 05:07 AST 21 IU/L (10-42) 07/21/20 05:07 AST Cancelled 07/21/20 05:07 ALT 26 IU/L (10-60) 07/21/20 05:07 ALT Cancelled 07/21/20 05:07 Alkaline Phosphatase 126 IU/L (42-121) H 07/21/20 05:07 Alkaline Phosphatase Cancelled 07/21/20 05:07 Serum Total Protein 7.0 gm/dL (6.4-8.2) 07/21/20 05:07 Serum Total Protein Cancelled 07/21/20 05:07 Albumin 3.9 g/dl (3.2-5.5) 07/21/20 05:07 Albumin Cancelled 07/21/20 05:07 Globulin 3.1 gm/dL (2.3-3.5) 07/21/20 05:07 Albumin/Globulin Ratio 1.3 (1.1-1.9) 07/21/20 05:07 Amylase 28 U/L (28-100) 07/21/20 05:07 Lipase 22 U/L (22-51) 07/21/20 05:07 Urine Color Yellow (Yellow) 07/21/20 05:10 Urine Appearance Clear (Clear) 07/21/20 05:10 Urine pH 6.5 (4.5-7.8) 07/21/20 05:10 Ur Specific [place] 1.025 (1.005-1.030) 07/21/20 05:10 Urine Protein Negative mg/dL 07/21/20 05:10 Urine Glucose (UA) Negative mg/dL (Negative) 07/21/20 05:10 Urine Ketones Negative mg/dL (NEGATIVE) 07/21/20 05:10 Urine Blood Trace-intact (Negative) H 07/21/20 05:10 Urine Nitrite Negative 07/21/20 05:10 Urine Bilirubin Negative (NEGATIVE) 07/21/20 05:10 Urine Urobilinogen 1.0 mg/dL (0.2-1.0) 07/21/20 05:10 Ur Leukocyte Esterase Negative (Negative) 07/21/20 05:10 Urine RBC 5-10 /hpf H 07/21/20 05:10 Urine WBC 1-3 /hpf 07/21/20 05:10 Ur Epithelial Cells 0 /hpf 07/21/20 05:10 Amorphous Sediment 1+ 07/21/20 05:10 Urine Bacteria Rare 07/21/20 05:10 Urine Mucus Trace 07/21/20 05:10 - EKG/XRAY/CT EKG: Sinus - HR 60, normal intervals, no evidence of ischemia. normal ekg. motion artificat - Additional EKG/XRAY/Consults Time Called: 06:30 Consult/PCP: Dr. hdz: no surgery capabilities on weekends. Departure - Departure Clinical Impression: Thrombocytopenia, Cholecystitis Condition: Fair Departure Forms: ED Discharge - Pt. Copy, Patient Portal Self Enrollment Instructions: DI for Abdominal Pain-Adult Activity: increase activity as tolerated Referrals: SERVANDO GRAY IV, REHABILITATION TECHNICIAN [Primary Care Provider] - 1-5 Days Home Medications: Ambulatory Orders Unobtainable 07/21/20 Additional Instructions: Follow up with Dr. Bunny montenegro 07/23/20 regarding platelets. Transfer to Outside Facility - Transfer Information Decision to Transfer Date: 07/21/20 Decision to Transfer Time: 06:32 Reason for Transfer: no surgical capabilites
[2020-07-21] MEDS ORDERED: SODIUM CHLORIDE 0.9% 1000ML 1,000 ML IVS ONE (05:34)
[2020-07-21] MEDS ORDERED: ALUM & MAG HYDROX-SIMETHICONE 30 ML, LIDOCAINE VISCOUS 2% 15 ML PO ONE ×2 (06:00)
--- NOTE | 2020-07-21 06:26 | CT ---
EXAM: CT abdomen and pelvis with IV contrast CLINICAL DATA: 54 years Male diffuse abd pain TECHNICAL DATA: Axial CT imaging of the abdomen and pelvis was performed following the administration of intravenous contrast.. Oral contrast was not administered. Sagittal and coronal reconstructed images were then performed. The CT study is performed according to ALARA (as low as reasonably achievable) or ALARA/IMAGE GENTLY, with automatic adjustment of mA and/or kV according to patient size. Performed on: 07/21/2020 at 5:51 AM. Comparison: None FINDINGS: Lung bases: The lung bases are clear. There is minimal bibasilar atelectasis and/or fibrosis. There is trace pericardial fluid. Liver: The liver is enlarged and measures 22.5 cm in craniocaudal dimension. No focal hepatic abnormalities are identified. Liver attenuation is within normal limits. The portal veins are patent. Spleen: The spleen is enlarged and measures 14 cm in craniocaudal dimension. No focal splenic abnormalities are identified. Gallbladder and bile duct: The gallbladder is well distended and contains gallstones. There may be very mild pericolonic cholecystic inflammation and edema. Acute cholecystitis is not excluded. There is no biliary ductal dilatation. Pancreas: There is fatty replacement of the pancreas. Adrenal Glands:The adrenal glands are normal in size and configuration. Kidneys:The kidneys are normal in size and configuration. There is moderate bilateral hydronephrosis without definite ureteral obstruction. Chronic UPJ obstructions are not excluded. There is a nonobstructing calcification in the lower pole of the left kidney measuring approximately 7x 4 mm in cross-sectional diameter. No definite solid or cystic renal mass lesions are identified. Stomach:The stomach is grossly normal. There is no definite hiatal hernia. Bowel:The bowel gas pattern is non specific and non obstructive. Appendix: There is no CT evidence of acute appendicitis. Free air:There is no evidence of free air. Free fluid: There is no evidence of free fluid. Vasculature: The aorta is normal in caliber and contour. The inferior vena cava is grossly unremarkable. Lymphadenopathy: No pathologic lymphadenopathy is identified. Bladder: The bladder is well distended and smooth in contour. Reproductive: The prostate gland is grossly within normal limits. Bones: No acute osseous abnormalities are identified. Soft tissues: No acute soft tissue abnormalities are identified. IMPRESSION: 1. Cholelithiasis with surrounding pericholecystic inflammation and edema without biliary ductal dilatation. Findings do raise concern for acute cholecystitis. Consider ultrasound imaging for further evaluation. 2. Moderate bilateral hydronephrosis without definite obstructing ureteral abnormality. Chronic UPJ obstructions are not excluded. 3. Nonobstructing 7 mm calcification in the lower pole of the left kidney. 4. Hepatosplenomegaly. 5. Fatty replacement of the pancreas. 6. Trace pericardial fluid. Electronically signed by: Beth Long DO 07/21/2020 6:24 AM CERTIFIED [employer]INE [employer]CH[employer]IC
[2020-07-21] MEDS ORDERED: PIPERACILLIN/TAZOBACTAM 4.5 GM in SODIUM CHLORIDE 0.9% 100ML 100 ML IVPB ONE (06:32)
[2020-07-21 08:47] VITALS: BP 148/78; TEMP 98.9; O2SAT 97
== END 2020-07-21 08:47 | disposition home or self-care (01) ==
LOC: ER 04:54
DX: K80.20 Calculus of gallbladder without cholecystitis without obstruction (principal); D69.6 Thrombocytopenia, unspecified; N13.2 Hydronephrosis with renal and ureteral calculous obstruction; R16.2 Hepatomegaly with splenomegaly, not elsewhere classified; M54.9 Dorsalgia, unspecified; G89.29 Other chronic pain; Z20.828 Contact with and (suspected) exposure to other viral communicable diseases; Z85.6 Personal history of leukemia
CPT/HCPCS: 36415; 74177; 80053; 81001; 82150; 82248; 83690; 85025; 87040; 87635; 93005; J2270; J2405; J2543; J7030; J7050